=== PATIENT | male | born 1975 | race Caucasian/White ===

== ENCOUNTER 2018-02-14 13:47 | Emergency (ER) | payer OTHER ==
[~2018-02-14] VITALS: Ht 170.2 cm; Wt 72.6 kg
[2018-02-14] MEDS ORDERED: Mupirocin22 GM TOP (14:04)
== END 2018-02-14 14:19 | disposition home or self-care (01) ==
LOC: ER 13:47
DX: T20.011A Burn of unspecified degree of right ear [any part, except ear drum], initial encounter (principal); T20.06XA Burn of unspecified degree of forehead and cheek, initial encounter; T23.022A Burn of unspecified degree of single left finger (nail) except thumb, initial encounter; T31.0 Burns involving less than 10% of body surface; X08.8XXA Exposure to other specified smoke, fire and flames, initial encounter
CPT/HCPCS: 16020; 90471; 90714; 99283

== ENCOUNTER 2020-08-12 19:54 | Emergency (ER) | payer OTHER ==
[~2020-08-12] VITALS: Ht 170.2 cm; Wt 81.7 kg
[~2020-08-12 19:54] MED LIST: Mupirocin22 GM TOP
[2020-08-12] MEDS ORDERED: Prednisone20 MG PO ×2 (21:50→22:01)
[2020-08-12] MEDS ORDERED: IBU800 MG PO ×2 (21:50→22:01)
== END 2020-08-12 22:06 | disposition home or self-care (01) ==
LOC: ER 19:54
DX: M70.32 Other bursitis of elbow, left elbow (principal)
CPT/HCPCS: 73080; 99283-25; A9270; J7512